=== PATIENT | male | born 1990 | race Caucasian/White ===

== ENCOUNTER 2025-01-19 07:45 | Emergency (ER) | payer BC, SELFPAY ==
[2025-01-19 07:54] VITALS: BP 132/86; PULSE 84; RESP 16; TEMP 37.1; O2SAT 98
--- OUTSIDE RECORDS SUMMARY | 2025-01-19 07:54 | XMS_ITS | Clinical Summary ---
Author Organization [facility] Address [address] [place] [id number] Care Team Providers Care Build Automation Engineer Name Role Phone Ani Goetz MD Primary Care Provider Allergies No known active allergies Medications CPAPIndication s:ALVA (obstructive sleep apnea) Resmed CPAP machine for home use at pressure 6-15cmw, CPAP mask- mask of choice, fit to comfort one per 3 months 1 Each 04/15/19 24 Active cetirizine 10 mg tabletIndicati ons:Environmen wei allergies Take 1 Tablet (10 mg) by mouth once daily. 90 Tablet 3 07/23/19 25 Active lisinopriL 10 mg tabletIndicati ons:HTN (hypertension) Take 1 Tablet (10 mg) by mouth once daily. 90 Tablet 3 07/23/19 25 Active Blood Pressure Monitor KitIndications :HTN (hypertension) Frequency of testing: weekly 1 Each 07/23/19 25 Active omeprazole 20 mg Delayed-Releas e capsuleIndicat ions:Chronic GERD Take 1 Capsule (20 mg) by mouth once daily before a meal. 90 Capsule 3 07/23/19 25 Active FLUoxetine (PROZAC) 10 mg capsuleIndicat ions:Anxiety Take 1 Capsule (10 mg) by mouth once daily in the morning. 90 Capsule 1 09/22/19 25 Active fluticasone (50 mcg per actuation) nasal solution (FLONASE)Indic ations:Environ mental allergies Inhale 2 Sprays in both nostrils once daily. 16 g 12/23/19 25 Active fluticasone (50 mcg per actuation) nasal solution (FLONASE)Indic ations:Environ mental allergies Inhale 2 Sprays in both nostrils once daily. 16 g 2 07/23/19 25 025 Discontinued Active Problems Problem Noted Date Diagnosed Date Chronic GERD 07/22/2024 Environmental allergies 07/22/2024 Anxiety 07/22/2024 HTN (hypertension) 04/07/2023 Sleep apnea 08/06/2015 Well child check 11/15/2010 Encounters Date Type Department Care Team Description 01/19/2025 Nurse Triage [facility] [address] [place] [address] Ani Goetz MD Hives 12/21/2024 Refill [facility] [address] [place] [address] Ani Goetz MD Refill Request (Fluticasone (50 Mcg Per Actuation) Nasal) 11/30/2024 Nurse/Clinic Staff Only [facility] [address] [place] [address] Ani Goetz MD Immunization/Injectio n from Last 3 Months Immunizations Immunization Administration Dates Next Due AMB Influenza, IIV4 PF (=>6 mos Flulaval,Fluzone Fluarix)(Flu Clinic Only) 11/09/2017,12/13/2016 COVID-19 vaccine (Pfizer-Bio NTech 30mcg/0.3mL) 12YO+ BIVALENT PF, MDV 12/27/2021 COVID-19 vaccine (Pfizer-Bio NTech 30mcg/0.3mL) PF, MDV 11/24/2020,06/12/2020,05/22/2020 DTaP 05/22/1998 HIB PRP-T (ActHIB,Hiberix) 03/25/1994,,04/02/1993,12/07 Hepatitis A (Peds) 06/11/2007,10/05/2006 Hepatitis B (Peds) 09/02/1994,03/25/1994, 995 INFLUENZA, IIV3 PF (AGE >= 6 MO) 11/30/2024,10/18 Inactivated Polio Vaccine 05/22/1998,08/1994,04/02/1993,12/07 Influenza Virus, Unspecified 11/24/2020 Influenza, IIV3 (Age >=3 years) 12/03/19 13,11/15/2011,11/21/2010,12/11,11/15/2008,12/23/2007,12/04/2006 Influenza, IIV4 11/27/2022,,12/28/2019,11/16,12/27/2015,12/13/2014,12/10/2013 MENINGOCOCCAL VACCINE 2 VIAL 2MO-55YO (MENVEO) 07/30/2010 MMR 05/22/1998,02/18/1994 Meningococcal Vaccine (Menactra) 10/05/2006 Tdap 07/02/2015,04/18/2005 Family History Medical History Relation Name Comments No Known Problems Brother Brain cancer Father of Gliobla stoma Coronary artery disease Father Depression Father Hyperlipidemia Father Hypertension Father Depression Mother Heart attack Paternal Grandfather Coronary artery disease Paternal Grandmother Cardiac stents Hyperlipidemia Paternal Grandmother Hypertension Paternal Grandmother Relation Name Status Comments Brother Alive Father (Age 59) of Gl ioblastoma Mother Alive Paternal Grandfather Paternal Grandmother Social History Tobacco Use Types Packs/Day Years Used Date Smoking Tobacco: Former Cigarettes Q uit: 02/28/2015 Smokeless Tobacco: Former Chew Tobacco Cessation:Counseling Given: Yes Comments:uses nicotine lozenges daily Alcohol Use Standard Drinks/Week Comments Yes 21 (1 standard drink = 0.6 oz pu re alcohol) daily, 3-4 PHQ-2 Answer Date Recorded PHQ-2 TOTAL SCORE 0 08/22/2024 Social Connections Answer Date Recorded Do you often feel lonely or isolated from those around you? 0 07/21/2024 Alcohol Use Answer Date Recorded How often do you have a drink containing alcohol ? 4 03/01/2021 How many drinks containing a lcohol do you have on a typical day when you are drinking? 1 03/01/2021 How often do you have five or more drinks on one occasion? 3 03/01/2021 Financial Resource Strain Answer Date R ecorded Difficulty of Paying Living Expenses 3 07/21/2024 Difficulty of Paying Living Expenses Not on file 07/21/2024 Food Insecurity Answer Date Recorded Do you worry your food will run out before you are able to buy more? 1 07/21/2024 Transportation Needs Answer Date Record ed Does lack of transportation keep you from medica l appointments? 1 07/21/2024 Does lack of transportation keep you from work, meetings or getting things that you need? 1 07/21/2024 Housing Stability Answer Date Recorded What is your housing situation today? 1 07/21/2024 Utilities Answer Date Recorded Do you have trouble paying f or utilities (for example, heat, electricity, water, phone)? 1 07/21/2024 Sex and Gender Information Value Date Recorded Sex Assigned at Male 03/02/2021 6:58 PM LIGHTING DESIGNER Legal Sex Male 5:26 AM LIGHTING DESIGNER Gender Identity Male 03/02/2021 6:58 PM LIGHTING DESIGNER Sexual Orientation Straight 03/02/2021 6: 58 PM LIGHTING DESIGNER Occupation Industry Job Start Date Job End Date Not on file Not on file Not on file Not on file Obstetrics History Last Filed Vital Signs Vital Sign Reading Time Taken Comments Blood Pressure 129/83 07/22/2024 8:23 AM CDT Pulse 89 07/22/2024 8:23 AM CDT Temperature 36.8 C (98.3 F) 03/13/2023 8:40 AM LIGHTING DESIGNER Respiratory Rate 20 06/07/2022 12:01 PM CDT Oxygen Saturation 100% 07/22/2024 8:23 AM CDT Inhaled Oxygen Concentration - - Weight 92.1 kg (203 lb) 07/22/2024 8:23 AM CDT Height 173.3 cm (5' 8.23) 07/22/2024 8:23 AM CD T Body Mass Index 30.66 07/22/2024 8:23 AM CDT Plan of Treatment Health Maintenance Due Date Last Done Comments HIV for age 15-65 10/25/2007 Hepatitis C screening for age 18-79 2010 HPV series for age 9-45 (1 - 3-dose SCDM series) 10/25/2019 COVID-19 vaccine series ( season) 2024 12/27/2021, 11/24/2020, 06/12/2020, Additional history exists Tetanus booster 07/01/2025 07/02/2015, 04/18/2005 BMI (ht and wt on same day) for age 18+ 07/22/2025 07/22/2024, 09/30/2023, 04/15/2023, Additional history exists Depression screening for age 12+ 08/22/2025 08/22/2024, 07/22/2024, 06/10/2021, Additional history exists RSV vaccine for adults or (1 - 1-dose 75+ series) 10/25/2067 Hepatitis B series for 19+ Completed 09/02, 03/25/1994, 02/18/1994 Influenza Vaccine Completed 11/30/2024, , 11/27/2022, Additional history exists Pneumococcal series for age 6-49 Aged Out No longer eligible based on patient's age to complete this topic Insurance [employer] [id number] [facility] [place] [id number] Care Teams Build Automation Engineer Relationship Specialty Start Date End Date Ani Goetz MD [address] [place] [address] PCP - General Family Practice 08/20/22
--- NOTE | 2025-01-19 08:25 | ED.GENADULT ---
HPI - General Adult General Date Seen: 01/19/25 Chief complaint: Skin/Abscess/Foreign Body Stated complaint: Hives Time Seen by Provider: 01/19/25 08:25 History of Present Illness HPI narrative: 34-year-old male presenting to the ER today this morning with hives. He woke up this morning experiencing hives from his waist up including his face with swelling around his eyes. He is quite itchy. Took Benadryl at about 7:00 a.m. prior to coming. He notes that he was little bit itchy last night around bedtime and had trouble sleeping because he was itchy all night long. When he got up this morning his noticed that he was quite red and having hives from the waist up, including on his face with swelling around his eyes. He did not have any swelling in his throat or mouth. No trouble breathing. No dizziness or lightheadedness. No abdominal pain. No nausea or vomiting. After taking the Benadryl he is now almost completely back to normal. He has no known new exposures. No new food, medications, chemicals, or new activities yesterday. He wonders if he might have had a spider bite in his hog barn yesterday but does not recall any specific insect envenomation. He also notes, with his 's encouragement, that he had a viral illness 2 or 3 days ago with some GI upset and headache. That viruses now completely resolved. No other known sick exposures. His is a teacher and he has 2 young children at home so there have been viruses going through the house but they are not sick with similar hives. Related Data Home Medications ?Medication ?Instructions ?Recorded ?Confirmed lisinopril 10 mg tablet 10 mg PO DAILY 03/11/23 01/19/25 omeprazole 40 mg capsule,delayed 40 mg PO DAILY 03/11/23 01/19/25 release fluoxetine 10 mg capsule 10 mg PO QAM 01/19/25 01/19/25 Previous Rx's ?Medication ?Instructions ?Recorded cetirizine 10 mg capsule (Zyrtec) 10 mg PO DAILY PRN allergy 01/19/25 symptoms #3 caps epinephrine 0.3 mg/0.3 mL 0.3 mg (0.3 mL) IM Q5-15M PRN #2 ea 01/19/25 injection, auto-injector (EpiPen) prednisone 20 mg tablet 40 mg (2 x 20 mg) PO DAILY 2 days 01/19/25 #4 tabs Allergies Allergy/AdvReac Type Severity Reaction Status Date / Time No Known Drug Allergies Allergy Verified 01/19/25 07:58 Exam Narrative: Exam Narrative: Constitutional: Appears well-developed and well-nourished. Alert. Conversant. Non toxic. HENT: Head: Atraumatic. Nose: Nose normal. Mouth/Throat: Oral mucosa is clear and moist. no trismus. Pharynx normal. Tonsils symmetric. No tonsillar enlargement, erythema, or exudate. No trismus. No stridor. Airway widely patent. Eyes: Conjunctivae normal. EOM normal. Pupils equal, round, and reactive to light. No scleral icterus. Neck: Normal range of motion. Neck supple. No tracheal deviation present. Cardiovascular: Normal rate, regular rhythm. No gallop. No friction rub. No murmur heard. Symmetric radial artery pulses Pulmonary/Chest: Effort normal. No stridor. No respiratory distress. No wheezes. No rales. No rhonchi . No tenderness. Abdominal: Soft. Bowel sounds normal. No distension. No mass. No tenderness. No rebound. No guarding. Musculoskeletal: RUE: Normal range of motion. No tenderness. No deformity LUE: Normal range of motion. No tenderness. No deformity RLE: Normal range of motion. No edema. No tenderness. No deformity LLE: Normal range of motion. No edema. No tenderness. No deformity Lymph: No cervical adenopathy. Neurological: Alert and oriented to person, place, and time. Normal strength. CN II-VII intact. No sensory deficit. GCS eye subscore is 4. GCS verbal subscore is 5. GCS motor subscore is 6. Normal coordination Skin: Skin is warm and dry. Scattered faint urticaria including on his right posterior shoulder/scapula and a little bit on his posterior low back around the waistline. Face and eyes are normal. Anterior chest is normal. Upper and lower extremities are normal.. No pallor. Normal capillary refill. Psychiatric: Normal mood. Normal affect. Const: Vital Signs, click to edit/add: Vital Signs - 24 hr 01/19/25 07:54 Temperature 98.7 F Pulse Rate [Pulse Oximeter] 84 Respiratory Rate 16 Blood Pressure [Ri ght Upper Arm] 132/86 Pulse Oximetry 98 Oxygen Delivery Me thod Room Air Course Vital Signs Vital signs: Initial Vital Signs Temperature 98.7 F 01/19/25 07:54 Temperature Source Temporal Artery Scan 01/19/25 07:54 Pulse Rate 84 01/19/25 07:54 Pulse Rhythm Regular 01/19/25 07:54 Respiratory Rate 16 01/19/25 07:54 Blood Pressure 132/86 01/19/25 07:54 Blood Pressure Mean 101 01/19/25 07:54 Blood Pressure Position Sitting 01/19/25 07:54 Pulse Oximetry 98 01/19/25 07:54 Oxygen Delivery Method Room Air 01/19/25 07:54 Vital Signs Temperature 98.7 F 01/19/25 07:54 Pulse Rate 84 01/19/25 07:54 Respiratory Rate 16 01/19/25 07:54 Blood Pressure 132/86 01/19/25 07:54 Pulse Oximetry 98 01/19/25 07:54 Oxygen Delivery Method Room Air 01/19/25 07:54 Temperature 98.7 F 01/19/25 07:54 Pulse Rate 84 01/19/25 07:54 Respiratory Rate 16 01/19/25 07:54 Blood Pressure 132/86 01/19/25 07:54 Pulse Oximetry 98 01/19/25 07:54 Oxygen Delivery Method Room Air 01/19/25 07:54 Medications Administered Medications: Generic Name Dose Route Start Last Admin Trade Name Freq PRN Reason Stop Dose Admin Famotidine 20 mg 01/19/25 08:44 01/19/25 08:49 Famotidine 20 Mg Tablet PO 01/19/25 08:45 20 mg ONCE ONE Administration Prednisone 40 mg 01/19/25 08:44 01/19/25 08:49 Prednisone 20 Mg Tablet PO 01/19/25 08:45 40 mg ONCE ONE Administration Medical Decision Making MDM Narrative Medical decision making narrative: This patient presents for evaluation of hives affecting his face, and torso. It sounds like he 1st had itchiness last night around bedtime and when he got up this morning was noted to have visible hives. He had already taken Benadryl prior to arrival in hives are now largely improved.. Signs and symptoms are consistent with allergic reaction. However he has no clear allergen exposure. He did have a viral illness a couple of days ago so this could be a post viral urticaria as well. No airway involvement, bronchospasm, GI symptoms, hypotension, or other sign of anaphylaxis. Patient was treated here with medications as noted above. Discussed with the patient and his that it is impossible to know based on the appearance of the hives whether not this is truly allergic reaction or this is viral. Blood testing would likely not be beneficial and would not give a clear answer as to allergy versus post viral. Will send home with epipen, steroids, antihistamines. Potential for rebound reaction was discussed. Return of anaphylactic symptoms were discussed with patient and they were instructed to inject epi-pen and call 911 should these symptoms occur. [] Given the rapidity of resolution, lack of serious systemic symptoms, lack of respiratory difficulty and no oral or pharyngeal swelling, would not admit at this time for anaphylaxis. There is no signs of anaphylactic shock. Discharge Plan Discharge Clinical Impression: Urticaria Patient Disposition: Home, Self-Care Condition: Stable Instructions: Urticaria (ED) Additional Instructions: As we discussed, the cause of her hives is not clear at this time. This could be a reaction to a recent viral infection. These hives also could be allergic reaction to something your exposed to yesterday. I am glad that you took Benadryl and your hives are already improving so nicely. Please continue on antihistamines for the next 2-3 days. Use Zyrtec 10 mg by mouth once daily. You can add Benadryl 1-2 capsules by mouth every 6 hours as needed. Also start on steroids (prednisone 40 mg daily) to try to help prevent the hives from coming back. use the EpiPen only if you are having severe allergic reactions such as low blood pressure, fainting, throat swelling, trouble breathing. Please follow-up with your regular doctor in 1-2 weeks for recheck. if you get hives again in the future, please recheck with your doctor or come back to the ER. Prescriptions: New epinephrine [EpiPen] 0.3 mg/0.3 mL auto-injector 0.3 mg IM Q5-15M PRNQty: 2 0RF Rx Instructions: do not exceed 3 doses per episode prednisone 20 mg tablet 40 mg PO DAILY 2 Days Qty: 4 0RF Zyrtec 10 mg capsule 10 mg PO DAILY PRN (Reason: allergy symptoms) Qty: 3 0RF No Action omeprazole 40 mg capsule,delayed release(DR/EC) 40 mg PO DAILY lisinopril 10 mg tablet 10 mg PO DAILY fluoxetine 10 mg capsule 10 mg PO QAM Follow Up/Referrals: Fuad Roldan MD [Primary Care Provider, Family Practice] Stand Alone Forms: [facility] Info Instructions
[2025-01-19] MEDS: FAMOTIDINE 20 MG TABLET PO (08:49)
== END 2025-01-19 08:59 | disposition home or self-care (01) ==
LOC: ED 08:55
PROVIDERS: Emergency Provider Emergency Medicine; PCP Family Medicine
DX: L50.9 Urticaria, unspecified (principal)
CPT/HCPCS: 99282; 99283; A9270; J7512